=== PATIENT | male | born 1990 ===

== ENCOUNTER 2018-09-22 13:12 | Emergency (ER) | payer MEDICAID ==
[2018-09-22 13:23] VITALS: RESP 20
--- NOTE | 2018-09-22 15:07 | C.PDOC ---
History Of Present Illness 27-year-old male presents to the ED for evaluation after he woke up this morning with mild left-sided facial droop. Patient the droop involves the left side of his forehead. Patient also reports an abnormal taste to the left side of his tongue and slight lagging of his eye lid. Patient reports that he was dribbling while brushing his teeth. Otherwise, he denies any paresthesias to the face. Time Seen by Provider: 09/22/18 14:55 Chief Complaint (Nursing): Weakness/Neurological Deficit History Per: Patient History/Exam Limitations: no limitations Onset/Duration Of Symptoms: Hrs Current Symptoms Are (Timing): Still Present Activity At Onset Of Symptoms: Had Just Stood up Additional History Per: Patient Past Medical History Reviewed: Historical Data, Nursing Documentation, Vital Signs Vital Signs: Last Vital Signs Temp 98.8 F 09/22/18 13:22 Pulse 97 H 09/22/18 13:22 Resp 20 09/22/18 13:22 BP 124/79 09/22/18 13:22 Pulse Ox 98 09/22/18 13:22 - Medical History PMH: No Chronic Diseases Surgical History: No Surg Hx Family History: States: Unknown Family Hx - Social History Hx Alcohol Use: No Hx Substance Use: No - Immunization History Hx Tetanus Toxoid Vaccination: No Hx Influenza Vaccination: No Hx Pneumococcal Vaccination: No Review Of Systems Neurological: Positive for: Other (left-sided facial droop, involving forehead ) Physical Exam - Physical Exam Appears: Non-toxic, No Acute Distress Skin: Normal Color, Warm, Dry Head: Atraumatic, Normacephalic Eye(s): bilateral: Normal Inspection Oral Mucosa: Moist Neck: Supple Chest: Symmetrical, No Deformity, No Tenderness Cardiovascular: Rhythm Regular, No Murmur Respiratory: Normal Breath Sounds, No Rales, No Rhonchi, No Wheezing Extremity: Normal ROM, Capillary Refill (less than 2 seconds ) Other Neurological Findings: Other (mild left-sided facial droop, involving forehead ) ED Course And Treatment O2 Sat by Pulse Oximetry: 98 (on RA) Pulse Ox Interpretation: Normal Progress Note: Pepcid PO and Prednisone PO given. 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 involves the forehead defer head CT with informed consent no herpetic lesions of face/nose/eyes,ears Disposition Doctor Will See Patient In The: Office Counseled Patient/Family Regarding: Studies Performed, Diagnosis - Disposition Referrals: [facility] [Outside] [facility] [Outside] [facility] [Outside] Jaquelin Hernandez MD [Staff Provider] - Disposition: HOME/ ROUTINE Disposition Time: 15:08 Condition: GOOD Additional Instructions: Prednisone taper- take daily in slowly lowering doses over the next 10 days 60, 60, 60, 40, 40, 20, 20, 10, 10, 5, 5. Pepcid 20 mg daily to help prevent gastritis from the Prednisone Tape L eye closed @ night to prevent eye opening and drying cornea while sleeping. (as shown in ED) Outpatient follow-up with [facility]rology [facility] Nurse- Dr. Hernandez- call for an appt for further eval. Prescriptions: predniSONE [predniSONE Tab] 10 mg PO DAILY 11 Days tab Instructions: Lynn's Palsy Forms: [employer] (Bulgarian) - Clinical Impression Clinical Impression: Facial droop - Scribe Statement The provider has reviewed the documentation as recorded by the Scribe (Abigail Jc) Provider Attestation: All medical record entries made by the Scribe were at my direction and personally dictated by me. I have reviewed the chart and agree that the record accurately reflects my personal performance of the history, physical exam, medical decision making, and the department course for this patient. I have also personally directed, reviewed, and agree with the discharge instructions and disposition.
[2018-09-22 15:26] VITALS: BP 129/81; PULSE 77; TEMP 98.6
[2018-09-22 23:38] VITALS: O2SAT 98
== END 2018-09-22 15:29 | disposition home or self-care (01) ==
LOC: C.ER 13:12
DX: R29.810 Facial weakness (principal)